=== PATIENT | female | born 1935 | race Caucasian/White ===

== ENCOUNTER 2017-10-21 13:01 | Inpatient (IN) | payer OTHER ==
[2017-10-21 14:26] LABS: Basophils # (Auto) 0.2 K/mm3 (0.0-0.1); Basophils % (Auto) 2.2 % (0.0-1.8); Eosinophils # (Auto) 0.1 K/mm3 (0.0-0.4); Eosinophils % (Auto) 1.6 % (0.0-4.3); Hemoglobin 10.2 gm/dl (10.1-14.3); Lymphocytes # (Auto) 1.6 K/mm3 (1.2-5.4); Lymphocytes % (Auto) 17.2 % (13.4-35.0); Mean Corpuscular HGB Conc 32 % (30-34); Monocytes # (Auto) 0.8 K/mm3 (0.0-0.8); Monocytes % (Auto) 8.1 % (0.0-7.3); Platelet Count 351 K/mm3 (140-440); Red Blood Count 4.77 M/mm3 (3.65-5.03); Red Cell Distribution Width 15.5 % (13.2-15.2)
[2017-10-21 14:27] LABS: Mean Corpuscular Hemoglobin 21 pg (28-32); Mean Corpuscular Volume 67 fl (79-97)
[2017-10-21 14:36] LABS: INR 0.96 (0.87-1.13)
[2017-10-21 14:37] LABS: Partial Thromboplastin Time 42.7 Sec. (24.2-36.6)
[2017-10-21 14:49] LABS: BUN/Creatinine Ratio 10; Blood Urea Nitrogen 7 mg/dL (7-17); Calcium 8.7 mg/dL (8.4-10.2); Hemolysis Index 3
--- NOTE | 2017-10-21 15:02 | XRay Report ---
FINAL REPORT EXAM: XR CHEST ROUTINE 2V HISTORY: Shortness of breath TECHNIQUE: Frontal and lateral views of the chest. PRIORS: None currently available. FINDINGS: Moderate cardiomegaly. Aortic calcifications. Mildly prominent central pulmonary markings. No pneumothorax. No distinct consolidation. Suspect small bilateral pleural effusions. Lungs appear hyperinflated and may be related to reactive airway disease or COPD. There are no suspicious osseous lesions. Degenerative changes in the spine and both shoulders. IMPRESSION: Cardiomegaly and prominent central pulmonary markings suggest mild CHF. Please correlate clinically. Suspect small bilateral pleural effusions. COPD.
[2017-10-21 15:55] LABS: Chol/HDL Ratio 4.29 %; HDL Cholesterol 27 mg/dL (40-59); LDL Cholesterol,Direct 61 mg/dL (50-130)
[2017-10-21] MEDS ORDERED: K-DUR PO ONE (16:08)
--- NOTE | 2017-10-21 16:23 | Emergency Department Report ---
ED Shortness of Breath HPI - General Chief Complaint: Dyspnea/Respdistress Stated Complaint: CHEST PAIN/SHORNTNESS Time Seen by Provider: 10/21/17 16:07 Source: patient, family Mode of arrival: Wheelchair Limitations: Language Barrier - History of Present Illness MD Complaint: shortness of breath (For a few days, gradually worsening, associated with productive cough, chest pain, and leg edema. She was recently admitted to [facility] for seizure and weakness and was diagnosed with portal vein blood clot and a "small heart attack". According to her daughter in law, she is taking Lasix that was prescribed by her nephew. The hospital did not diagnose the patient with CHF and no history of CHF. ) - Related Data Allergies Allergy/AdvReac Type Severity Reaction Status Date / Time No Known Allergies Allergy Unverified 10/21/17 13:13 ED Review of Systems ROS: Stated complaint: CHEST PAIN/SHORNTNESS Other details as noted in HPI Constitutional: malaise. denies: chills, fever Eyes: denies: eye pain, eye discharge, vision change ENT: denies: ear pain, throat pain Respiratory: denies: cough, shortness of breath, wheezing Cardiovascular: chest pain, dyspnea on exertion, edema. denies: palpitations Endocrine: no symptoms reported Gastrointestinal: denies: abdominal pain, nausea, diarrhea Genitourinary: other (incontinence). denies: urgency, dysuria, discharge Musculoskeletal: myalgia. denies: back pain, joint swelling, arthralgia Skin: denies: rash, lesions Neurological: weakness. 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 Absent: respiratory distress - Cardiovascular Cardiovascular Exam: Present: regular rate, normal rhythm. Absent: systolic murmur, diastolic murmur, rubs, gallop - GI/Abdominal GI/Abdominal exam: Present: soft, normal bowel sounds - Extremities Exam Extremities exam: Present: normal inspection, pedal edema - Back Exam Back exam: Present: normal inspection - Neurological Exam Neurological exam: Present: alert, oriented X3 - Psychiatric Psychiatric exam: Present: normal affect, normal mood - Skin Skin exam: Present: warm, dry, intact, normal color. Absent: rash ED Course Vital Signs 10/21/17 10/21/17 10/21/17 13:13 14:49 16:48 Temperature 98.2 F Pulse Rate 74 76 76 Respiratory 20 15 19 Rate Blood Pressure 166/74 Blood Pressure 171/69 183/84 [Right] O2 Sat by Pulse 98 97 94 Oximetry 10/21/17 10/21/17 18:33 19:23 Temperature Pulse Rate 79 76 Respiratory 18 13 Rate Blood Pressure Blood Pressure 171/68 [Right] O2 Sat by Pulse 98 97 Oximetry ED Medical Decision Making - Lab Data Result diagrams: 10/21/17 14:08 10/21/17 14:08 Critical care attestation.: If time is entered above; I have spent that time in minutes in the direct care of this critically ill patient, excluding procedure time. ED Disposition Clinical Impression: Hypokalemia CHF (congestive heart failure) Qualifiers: Heart failure type: unspecified Heart failure chronicity: acute Qualified Code( s): I50.9 - Heart failure, unspecified Disposition: OP ADMIT IP TO THIS HOSP Is pt being admited?: Yes Does the pt Need Aspirin: No Condition: Stable Time of Disposition: 20:41
[2017-10-21] MEDS ORDERED: MORPHINE IV ONE (18:59)
--- NOTE | 2017-10-21 21:49 | History and Physical Report ---
History of Present Illness Date of examination: 10/21/17 Date of admission: 10/21/17 20:41 Chief complaint: Chief complaint: Left-sided chest pain Swelling of both the legs History of present illness: History of Present Illness: 81-year-old female comes in for chest pain productive cough and swelling of both the legs. She was recently discharged from [facility] after being treated for seizures and was diagnosed with the portal vein thrombosis and a small non-STEMI. Patient is on Lasix and is apparently supposed to follow with the cardiology in a week. She does not have an idea how the echocardiogram was. Ejection fraction is not known valvular function is not known. Results of stress test not known. Patient has 3+ pedal edema and orthopnea. 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 denies: chills, fever Eyes: denies: eye pain, eye discharge, vision change ENT: denies: ear pain, throat pain Respiratory: denies: cough, shortness of breath, wheezing Cardiovascular: chest pain, dyspnea on exertion, edema. denies: palpitations Endocrine: no symptoms reported Gastrointestinal: denies: abdominal pain, nausea, diarrhea Genitourinary: other (incontinence). denies: urgency, dysuria, discharge Musculoskeletal: myalgia. denies: back pain, joint swelling, arthralgia Skin: denies: rash, lesions Neurological: weakness. denies: headache, paresthesias Psychiatric: denies: anxiety, depression Hematological/Lymphatic: denies: easy bleeding, easy bruising 14 point review of systems done Medications and Allergies Allergies Allergy/AdvReac Type Severity Reaction Status Date / Time No Known Allergies Allergy Unverified 10/21/17 13:13 Home Medications Medication Instructions Recorded Confirmed Last Taken Type AtorvaSTATin [Lipitor] 40 mg PO QHS 10/21/17 10/21/17 Unknown History Metoprolol [Lopressor] 25 mg PO BID 10/21/17 10/21/17 Unknown History Sucralfate [Carafate] 1 gm PO Q6HR 10/21/17 10/21/17 Unknown History Active Meds: Active Medications Enoxaparin Sodium (Lovenox) 40 mg SUB-Q QDAY ARMAAN Exam - Physical Exam Narrative exam: Lying in bed comfortably - Constitutional Vitals: Temp Pulse Resp BP Pulse Ox 98.2 F 70 25 H 124/59 97 10/21/17 13:13 10/21/17 21:00 10/21/17 21:00 10/21/17 21:00 10/21/17 21:00 General appearance: Present: mild distress, well-nourished - EENT Eyes: Present: PERRL ENT: hearing intact, clear oral mucosa - Neck Neck: Present: supple, normal ROM - Respiratory Respiratory effort: normal Respiratory: bilateral: CTA - Cardiovascular Heart rate: 90 Rhythm: regular Heart Sounds: Present: S1 & S2. Absent: rub, click - Extremities Extremities: no ischemia, pulses intact, pulses symmetrical, No edema Extremity abnormal: other (3+ leg edema) Peripheral Pulses: within normal limits - Abdominal General gastrointestinal: Present: soft, non-tender, non-distended, normal bowel sounds Female genitourinary: Present: normal - Rectal Rectal Exam: deferred - Integumentary Integumentary: Present: clear, warm, dry - Musculoskeletal Musculoskeletal: gait normal, strength equal bilaterally - Psychiatric Psychiatric: appropriate mood/affect, intact judgment & insight - Neurologic Neurologic: CNII-XII intact, moves all extremities - Allied Health Allied health notes reviewed: nursing, case management Results - Labs CBC & Chem 7: 10/21/17 14:08 10/21/17 14:08 Labs: Laboratory Last Values WBC 9.4 K/mm3 (4.5-11.0) 10/21/17 14:08 RBC 4.77 M/mm3 (3.65-5.03) 10/21/17 14:08 Hgb 10.2 gm/dl (10.1-14.3) 10/21/17 14:08 Hct 32.0 % (30.3-42.9) 10/21/17 14:08 MCV 67 fl (79-97) L 10/21/17 14:08 MCH 21 pg (28-32) L 10/21/17 14:08 MCHC 32 % (30-34) 10/21/17 14:08 RDW 15.5 % (13.2-15.2) H 10/21/17 14:08 Plt Count 351 K/mm3 (140-440) 10/21/17 14:08 Lymph % (Auto) 17.2 % (13.4-35.0) 10/21/17 14:08 [place] % (Auto) 8.1 % (0.0-7.3) H 10/21/17 14:08 Eos % (Auto) 1.6 % (0.0-4.3) 10/21/17 14:08 Baso % (Auto) 2.2 % (0.0-1.8) H 10/21/17 14:08 Lymph # 1.6 K/mm3 (1.2-5.4) 10/21/17 14:08 [place] # 0.8 K/mm3 (0.0-0.8) 10/21/17 14:08 Eos # 0.1 K/mm3 (0.0-0.4) 10/21/17 14:08 Baso # 0.2 K/mm3 (0.0-0.1) H 10/21/17 14:08 Seg Neutrophils % 70.9 % (40.0-70.0) H 10/21/17 14:08 Seg Neutrophils # 6.7 K/mm3 (1.8-7.7) 10/21/17 14:08 PT 13.3 Sec. (12.2-14.9) 10/21/17 14:08 INR 0.96 (0.87-1.13) 10/21/17 14:08 APTT 42.7 Sec. (24.2-36.6) H 10/21/17 14:08 Sodium 139 mmol/L (137-145) 10/21/17 14:08 Potassium 3.1 mmol/L (3.6-5.0) L 10/21/17 14:08 Chloride 97.8 mmol/L (98-107) L 10/21/17 14:08 Carbon Dioxide 29 mmol/L (22-30) 10/21/17 14:08 Anion Gap 15 mmol/L 10/21/17 14:08 BUN 7 mg/dL (7-17) 10/21/17 14:08 Creatinine 0.7 mg/dL (0.7-1.2) 10/21/17 14:08 Estimated GFR > 60 ml/min 10/21/17 14:08 BUN/Creatinine Ratio 10 % 10/21/17 14:08 Glucose 99 mg/dL (65-100) 10/21/17 14:08 Calcium 8.7 mg/dL (8.4-10.2) 10/21/17 14:08 Troponin T 0.317 ng/mL (0.00-0.029) H* 10/21/17 16:03 NT-Pro-B Natriuret Pep 40366 pg/mL (0-900) H 10/21/17 14:08 Triglycerides 164 mg/dL (2-149) H 10/21/17 14:08 Cholesterol 116 mg/dL (50-199) 10/21/17 14:08 LDL Cholesterol Direct 61 mg/dL (50-130) 10/21/17 14:08 HDL Cholesterol 27 mg/dL (40-59) L 10/21/17 14:08 Cholesterol/HDL Ratio 4.29 % 10/21/17 14:08 - Imaging and Cardiology Imaging and Cardiology: Chest x-ray FINDINGS: Moderate cardiomegaly. Aortic calcifications. Mildly prominent central pulmonary markings. No pneumothorax. No distinct consolidation. Suspect small bilateral pleural effusions. Lungs appear hyperinflated and may be related to reactive airway disease or COPD. There are no suspicious osseous lesions. Degenerative changes in the spine and both shoulders. IMPRESSION: Cardiomegaly and prominent central pulmonary markings suggest mild CHF. Please correlate clinically. Suspect small bilateral pleural effusions. COPD. Assessment and Plan Advance Directives: Yes (full code) VTE prophylaxis?: Chemical Plan of care discussed with patient/family: Yes - Patient Problems (1) Acute exacerbation of CHF (congestive heart failure) Current Visit: Yes Status: Acute Qualifiers: Heart failure type: combined systolic and diastolic Qualified Code(s): I50.43 - Acute on chronic combined systolic (congestive) and diastolic ( congestive) heart failure Plan to address problem: Patient initiated on IV Lasix Echocardiogram ordered Cardiology consult ordered BNP 86641 (2) Elevated troponin Current Visit: Yes Status: Acute Plan to address problem: On a declining trend. Probably from the recent NSTEMI We will get the records from [facility] (3) Hypertension Current Visit: Yes Status: Chronic Qualifiers: Hypertension type: essential hypertension Qualified Code(s): I10 - Essential (primary) hypertension Plan to address problem: Continue antihypertensives (4) Hypothyroidism (acquired) Current Visit: Yes Status: Acute Plan to address problem: Continue levothyroxine (5) Hyperlipidemia Current Visit: Yes Status: Chronic Qualifiers: Hyperlipidemia type: mixed hyperlipidemia Qualified Code(s): E78.2 - Mixed hyperlipidemia Plan to address problem: Continue statins (6) Hypokalemia Current Visit: Yes Status: Acute Plan to address problem: Supplemented (7) Portal vein thrombosis Current Visit: Yes Status: Acute Plan to address problem: not on any oral anticoagulant Check the records from [facility] (8) DVT prophylaxis Current Visit: Yes Status: Acute Plan to address problem: On heparin
[2017-10-21] MEDS ORDERED: DILAUDID IV PRN (22:05)
[2017-10-21] MEDS ORDERED: ZOFRAN IV PRN (22:05)
[2017-10-21] MEDS ORDERED: SODIUM CHLORIDE FLUSH SYRINGE 10 ML IV PRN (22:05)
[2017-10-21] MEDS ORDERED: MORPHINE IV PRN (22:05)
[2017-10-21] MEDS ORDERED: PERCOCET 5/325 PO PRN (22:05)
[2017-10-21] MEDS: CARAFATE PO SCH (23:35)
[2017-10-21] MEDS: K-DUR PO SCH (23:36)
[2017-10-21] MEDS: LOPRESSOR PO SCH (23:36)
[2017-10-21] MEDS: KCL 10MEQ/100ML 10 MEQ/100 ML BAG IV SCH (23:36)
[2017-10-22] MEDS: TYLENOL PO PRN (00:15)
[2017-10-22] MEDS: KCL 10MEQ/100ML 10 MEQ/100 ML BAG IV SCH ×3 (01:00→04:39)
[2017-10-22] MEDS: LASIX IV SCH ×2 (06:13→18:45)
[2017-10-22] MEDS: CARAFATE PO SCH ×3 (06:13→18:45)
[2017-10-22 06:44] LABS: Basophils # (Auto) 0.1 K/mm3 (0.0-0.1); Basophils % (Auto) 1.9 % (0.0-1.8); Eosinophils # (Auto) 0.2 K/mm3 (0.0-0.4); Eosinophils % (Auto) 2.8 % (0.0-4.3); Hematocrit 29.1 % (30.3-42.9); Hemoglobin 9.2 gm/dl (10.1-14.3); Lymphocytes # (Auto) 1.6 K/mm3 (1.2-5.4); Lymphocytes % (Auto) 20.5 % (13.4-35.0); Mean Corpuscular HGB Conc 31 % (30-34); Mean Corpuscular Hemoglobin 21 pg (28-32); Mean Corpuscular Volume 68 fl (79-97); Monocytes # (Auto) 0.7 K/mm3 (0.0-0.8); Monocytes % (Auto) 9.2 % (0.0-7.3); Platelet Count 301 K/mm3 (140-440); Red Cell Distribution Width 16.2 % (13.2-15.2)
[2017-10-22 07:16] LABS: Alanine Aminotransferase 21 units/L (7-56); Albumin 2.8 g/dL (3.9-5); BUN/Creatinine Ratio 9; Blood Urea Nitrogen 6 mg/dL (7-17); Calcium 8.3 mg/dL (8.4-10.2); Hemolysis Index 1
[2017-10-22] MEDS ORDERED: LOVENOX SUB-Q SCH ×2 (10:00)
[2017-10-22] MEDS ORDERED: PEPCID IV SCH (10:00)
--- NOTE | 2017-10-22 11:41 | Consultation ---
History of Present Illness Consult date: 10/22/17 Consult reason: congestive heart failure History of present illness: This is an 81yr old whom is non-Polish speaking. Patient was just discharged from [facility] 3 days ago with superior mesenteric vein thrombosis. She is on eliquis for oral anticoagulation. Cardiac evaluation with an echocardiogram reports a dilated left atria, mitral calcifications with moderate mitral stenosis bt a normal left ventricular systolic function, ejection fraction 65%. Patient was brought to this hospital with edema of her lower extremities. There are no family members available. Patient is resting in bed comfortably. There were no reports of chest pain or shortness of breath. A chest xray reports cardiomegaly with small bilateral pleural effusions. 12 lead ECG is benign, no acute ischemic changes. Medications and Allergies Allergies Allergy/AdvReac Type Severity Reaction Status Date / Time No Known Allergies Allergy Unverified 10/21/17 13:13 Home Medications Medication Instructions Recorded Confirmed Last Taken Type AtorvaSTATin [Lipitor] 40 mg PO QHS 10/21/17 10/21/17 Unknown History Metoprolol [Lopressor] 25 mg PO BID 10/21/17 10/21/17 Unknown History Sucralfate [Carafate] 1 gm PO Q6HR 10/21/17 10/21/17 Unknown History Active Meds: Active Medications Acetaminophen (Tylenol) 650 mg PO Q4H PRN PRN Reason: Pain MILD(1-3)/Fever >100.5/CESPEDES Last Admin: 10/22/17 00:15 Dose: 650 mg Atorvastatin Calcium (Lipitor) 40 mg PO QHS [facility] Enoxaparin Sodium (Lovenox) 40 mg SUB-Q QDAY [facility] Famotidine (Pepcid) 20 mg IV BID [facility] Furosemide (Lasix) 40 mg IV 0600,1800 [facility] Last Admin: 10/22/17 06:13 Dose: 40 mg Hydromorphone HCl (Dilaudid) 0.5 mg IV Q3H PRN PRN Reason: Pain , Severe (7-10) Influenza Virus Vaccine Quadrival (Fluarix Quad [id number](36 Mos+) 0.5 ml IM .ONCE ONE Stop: 10/22/17 12:01 Metoprolol Tartrate (Lopressor) 25 mg PO BID [facility] Last Admin: 10/21/17 23:36 Dose: 25 mg Morphine Sulfate (Morphine) 2 mg IV Q4H PRN PRN Reason: Pain, Moderate (4-6) Last Admin: 10/22/17 04:38 Dose: 2 mg Ondansetron HCl (Zofran) 4 mg IV Q8H PRN PRN Reason: Nausea And Vomiting Oxycodone/Acetaminophen (Percocet 5/325) 1 tab PO Q6H PRN PRN Reason: Pain, Moderate (4-6) Pneumococcal Polyvalent Vaccine (Pneumovax 23) 0.5 ml IM .ONCE ONE Stop: 10/22/17 12:01 Potassium Chloride (K-Dur) 20 meq PO Q12H ARMAAN Last Admin: 10/21/17 23:36 Dose: 20 meq Sodium Chloride (Sodium Chloride Flush Syringe 10 Ml) 10 ml IV BID ARMAAN Sodium Chloride (Sodium Chloride Flush Syringe 10 Ml) 10 ml IV PRN PRN PRN Reason: LINE FLUSH Sucralfate (Carafate) 1 gm PO Q6HR [facility] Last Admin: 10/22/17 06:13 Dose: 1 gm Physical Examination Vital Signs Temp Pulse Resp BP Pulse Ox 98.2 F 74 20 166/74 98 10/21/17 13:13 10/21/17 13:13 10/21/17 13:13 10/21/17 13:13 10/21/17 13:13 General appearance: no acute distress HEENT: Positive: PERRL Cardiac: Positive: Reg Rate and Rhythm Results 10/22/17 06:14 10/22/17 06:14 Cardiac Enzymes 10/22/17 Range/Units 06:14 AST 17 (5-40) units/L Coagulation 10/21/17 Range/Units 14:08 PT 13.3 (12.2-14.9) Sec. INR 0.96 (0.87-1.13) APTT 42.7 H (24.2-36.6) Sec. Lipids 10/21/17 Range/Units 14:08 Triglycerides 164 H (2-149) mg/dL Cholesterol 116 (50-199) mg/dL HDL Cholesterol 27 L (40-59) mg/dL Cholesterol/HDL Ratio 4.29 % CBC 10/21/17 10/22/17 Range/Units 14:08 06:14 WBC 9.4 7.5 (4.5-11.0) K/mm3 RBC 4.77 4.30 (3.65-5.03) M/mm3 Hgb 10.2 9.2 L (10.1-14.3) gm/dl Hct 32.0 29.1 L (30.3-42.9) % Plt Count 351 301 (140-440) K/mm3 Lymph # 1.6 1.6 (1.2-5.4) K/mm3 [place] # 0.8 0.7 (0.0-0.8) K/mm3 Eos # 0.1 0.2 (0.0-0.4) K/mm3 Baso # 0.2 H 0.1 (0.0-0.1) K/mm3 Comprehensive Metabolic Panel 10/21/17 10/22/17 Range/Units 14:08 06:14 Sodium 139 141 (137-145) mmol/L Potassium 3.1 L 4.3 D (3.6-5.0) mmol/L Chloride 97.8 L 102.2 (98-107) mmol/L Carbon Dioxide 29 29 (22-30) mmol/L BUN 7 6 L (7-17) mg/dL Creatinine 0.7 0.7 (0.7-1.2) mg/dL Glucose 99 96 (65-100) mg/dL Calcium 8.7 8.3 L (8.4-10.2) mg/dL AST 17 (5-40) units/L ALT 21 (7-56) units/L Alkaline Phosphatase 102 (35-129) units/L Total Protein 6.0 L (6.3-8.2) g/dL Albumin 2.8 L (3.9-5) g/dL
[2017-10-22] MEDS ORDERED: Fluarix Quad 2017-2018(36 MOS+ IM ONE (12:00)
[2017-10-22] MEDS ORDERED: PNEUMOVAX 23 IM ONE (12:00)
--- NOTE | 2017-10-22 12:47 | Progress Note ---
Assessment and Plan Assessment and plan: Patient is a 81 yo Episcopalian speaking woman with a history of recent superior mesenteric thrombosis s/p discharge on Eliquis (?compliance) last from [facility], chf, gerd, nstemi and hypertension who presented with cp and sob. 2v CXR reported cardiomegaly and prominent central pulmonary marking suggest mild chf, suspect small bilateral pleural effusion and copd -Acute hypoxic respiratory failure, poa: continue o2 therapy, add nebs -Acute on chronic diastolic heart failure: Cardiology following, treat with diuretics, ECHO pending -Superior Mesenteric Venous Thrombosis: consult Vascular, resume a/c -Moderate malnutrition: consult Sliver Former -Chest pains: stress test ordered -hypokalemia: continue to monitor, recheck -Anemia of chronic disease most likely: repeat levels, check FOBT -DVT/gi ppx reviewed History Interval history: Son Roc used as the [employer] Valet Parking Attendant, Patient was seen and examined. Follow-up on current diagnosis of chest pains which is mild in the substernal area. The SOB is better on the O2. Overnight uneventful. Patient denies any nausea/vomiting or severe headaches. Imaging, nursing note, chart, labs and old chart reviewed. Discussed with patient. Hospitalist Physical - Physical exam Narrative exam: GEN: WDWN, NAD, Awake, Alert, Orientated HEENT: NCAT, EOMI, PERRL, OP Clear NECK: supple, no adenopathy, no thyromegaly, + JVD CVS/HEART: RRR, normal S1S2, pulses present bilaterally CHEST/LUNGS: bilateral crackles Symmetrical chest expansion, good air entry bilaterally GI/Abdomen: soft, NTND, good bowel sounds, no guarding or rebound /Bladder: no suprapubic tenderness, no CVA or paraspinal tenderness EXT/Skin: 2+ bilateral pitting leg edema MSK: FROM x 4 Neuro: CN 2-12 grossly intact, no new focal deficits Psych: calm - Constitutional Vitals: Temp Pulse Resp BP Pulse Ox 98.2 F 79 20 176/79 100 10/22/17 11:35 10/22/17 11:35 10/22/17 11:35 10/22/17 11:35 10/22/17 11:35 General appearance: Present: no acute distress Results - Labs CBC & Chem 7: 10/22/17 06:14 10/22/17 06:14 Labs: Laboratory Last Values WBC 7.5 K/mm3 (4.5-11.0) 10/22/17 06:14 RBC 4.30 M/mm3 (3.65-5.03) 10/22/17 06:14 Hgb 9.2 gm/dl (10.1-14.3) L 10/22/17 06:14 Hct 29.1 % (30.3-42.9) L 10/22/17 06:14 MCV 68 fl (79-97) L 10/22/17 06:14 MCH 21 pg (28-32) L 10/22/17 06:14 MCHC 31 % (30-34) 10/22/17 06:14 RDW 16.2 % (13.2-15.2) H 10/22/17 06:14 Plt Count 301 K/mm3 (140-440) 10/22/17 06:14 Lymph % (Auto) 20.5 % (13.4-35.0) 10/22/17 06:14 [place] % (Auto) 9.2 % (0.0-7.3) H 10/22/17 06:14 Eos % (Auto) 2.8 % (0.0-4.3) 10/22/17 06:14 Baso % (Auto) 1.9 % (0.0-1.8) H 10/22/17 06:14 Lymph # 1.6 K/mm3 (1.2-5.4) 10/22/17 06:14 [place] # 0.7 K/mm3 (0.0-0.8) 10/22/17 06:14 Eos # 0.2 K/mm3 (0.0-0.4) 10/22/17 06:14 Baso # 0.1 K/mm3 (0.0-0.1) 10/22/17 06:14 Seg Neutrophils % 65.6 % (40.0-70.0) 10/22/17 06:14 Seg Neutrophils # 5.0 K/mm3 (1.8-7.7) 10/22/17 06:14 PT 13.3 Sec. (12.2-14.9) 10/21/17 14:08 INR 0.96 (0.87-1.13) 10/21/17 14:08 APTT 42.7 Sec. (24.2-36.6) H 10/21/17 14:08 Sodium 141 mmol/L (137-145) 10/22/17 06:14 Potassium 4.3 mmol/L (3.6-5.0) D 10/22/17 06:14 Chloride 102.2 mmol/L (98-107) 10/22/17 06:14 Carbon Dioxide 29 mmol/L (22-30) 10/22/17 06:14 Anion Gap 14 mmol/L 10/22/17 06:14 BUN 6 mg/dL (7-17) L 10/22/17 06:14 Creatinine 0.7 mg/dL (0.7-1.2) 10/22/17 06:14 Estimated GFR > 60 ml/min 10/22/17 06:14 BUN/Creatinine Ratio 9 % 10/22/17 06:14 Glucose 96 mg/dL (65-100) 10/22/17 06:14 Hemoglobin A1c 6.2 % (4-6) H 10/21/17 22:40 Calcium 8.3 mg/dL (8.4-10.2) L 10/22/17 06:14 Total Bilirubin 0.60 mg/dL (0.1-1.2) 10/22/17 06:14 AST 17 units/L (5-40) 10/22/17 06:14 ALT 21 units/L (7-56) 10/22/17 06:14 Alkaline Phosphatase 102 units/L (35-129) 10/22/17 06:14 Troponin T 0.317 ng/mL (0.00-0.029) H* 10/21/17 16:03 NT-Pro-B Natriuret Pep 55452 pg/mL (0-900) H 10/21/17 14:08 Total Protein 6.0 g/dL (6.3-8.2) L 10/22/17 06:14 Albumin 2.8 g/dL (3.9-5) L 10/22/17 06:14 Albumin/Globulin Ratio 0.9 % 10/22/17 06:14 Triglycerides 164 mg/dL (2-149) H 10/21/17 14:08 Cholesterol 116 mg/dL (50-199) 10/21/17 14:08 LDL Cholesterol Direct 61 mg/dL (50-130) 10/21/17 14:08 HDL Cholesterol 27 mg/dL (40-59) L 10/21/17 14:08 Cholesterol/HDL Ratio 4.29 % 10/21/17 14:08
[2017-10-22] MEDS ORDERED: PROVENTIL IH PRN (12:53)
[2017-10-22] MEDS: PEPCID PO SCH ×2 (13:20→21:15)
[2017-10-22] MEDS: K-DUR PO SCH ×2 (13:21→23:15)
[2017-10-22] MEDS: LOPRESSOR PO SCH ×2 (13:22→21:16)
[2017-10-22] MEDS: SODIUM CHLORIDE FLUSH SYRINGE 10 ML IV SCH ×2 (13:24→21:14)
[2017-10-22] MEDS: ELIQUIS PO SCH (21:17)
[2017-10-23] MEDS: CARAFATE PO SCH ×4 (00:42→19:13)
[2017-10-23] MEDS: LASIX IV SCH ×2 (05:42→19:14)
[2017-10-23 06:38] LABS: Hematocrit 31.8 % (30.3-42.9); Hemoglobin 9.7 gm/dl (10.1-14.3); Mean Corpuscular HGB Conc 30 % (30-34); Platelet Count 318 K/mm3 (140-440); Red Blood Count 4.65 M/mm3 (3.65-5.03); Red Cell Distribution Width 16.7 % (13.2-15.2)
[2017-10-23 06:39] LABS: Mean Corpuscular Hemoglobin 21 pg (28-32); Mean Corpuscular Volume 68 fl (79-97)
[2017-10-23 06:58] LABS: BUN/Creatinine Ratio 13; Blood Urea Nitrogen 9 mg/dL (7-17); Calcium 8.4 mg/dL (8.4-10.2); Hemolysis Index 1
[2017-10-23] MEDS ORDERED: MAGNESIUM SULFATE 2GM/50ML 2 GM/50 ML BAG IV NR (07:57)
[2017-10-23] MEDS ORDERED: K-DUR PO NR (07:57)
[2017-10-23] MEDS: PEPCID PO SCH ×2 (11:09→21:17)
[2017-10-23] MEDS: K-DUR PO SCH ×2 (11:10→23:00)
[2017-10-23] MEDS: PROTONIX PO SCH (11:10)
[2017-10-23] MEDS: ELIQUIS PO SCH ×2 (11:10→21:18)
[2017-10-23] MEDS: SODIUM CHLORIDE FLUSH SYRINGE 10 ML IV SCH ×2 (11:11→21:18)
[2017-10-23] MEDS: LOPRESSOR PO SCH ×2 (11:11→23:00)
--- NOTE | 2017-10-23 12:52 | Progress Note ---
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, chf, gerd, nstemi and hypertension who presented with cp and sob. 2v CXR reported cardiomegaly and prominent central pulmonary marking suggest mild chf, suspect small bilateral pleural effusion and copd -Acute hypoxic respiratory failure, poa: continue o2 therapy, add nebs -Acute on chronic diastolic heart failure: Cardiology following, treat with diuretics, ECHO per Cardiology -Superior Mesenteric Venous Thrombosis: consult Vascular, resume a/c -Moderate malnutrition: consult Cloth Bleaching Range Tender -Chest pains: stress test ordered -hypokalemia: continue to monitor, recheck -Anemia of chronic disease most likely: repeat levels, check FOBT -DVT/gi ppx reviewed replace magnesium, potassium, fobt not done because no stool. h/h steady. anticipate discharge tomorrow. History Interval history: Son Roc used as the [employer], Patient was seen and examined. Follow-up on current diagnosis of chest pains which is mild in the substernal area. The SOB is better on the O2. Overnight uneventful. Patient denies any nausea/vomiting or severe headaches. Imaging, nursing note, chart, labs and old chart reviewed. Discussed with patient. Hospitalist Physical - Physical exam Narrative exam: GEN: WDWN, NAD, Awake, Alert, Orientated HEENT: NCAT, EOMI, PERRL, OP Clear NECK: supple, no adenopathy, no thyromegaly, + JVD CVS/HEART: RRR, normal S1S2, pulses present bilaterally CHEST/LUNGS: bilateral crackles Symmetrical chest expansion, good air entry bilaterally GI/Abdomen: soft, NTND, good bowel sounds, no guarding or rebound /Bladder: no suprapubic tenderness, no CVA or paraspinal tenderness EXT/Skin: 2+ bilateral pitting leg edema MSK: FROM x 4 Neuro: CN 2-12 grossly intact, no new focal deficits Psych: calm - Constitutional Vitals: Temp Pulse Resp BP Pulse Ox 97.9 F 74 20 103/42 97 10/23/17 10:22 10/23/17 10:22 10/23/17 10:10/23/17 10:22 10/23/17 10:22 General appearance: Present: no acute distress Results - Labs CBC & Chem 7: 10/23/17 06:06 10/23/17 06:06 Labs: Laboratory Last Values WBC 9.5 K/mm3 (4.5-11.0) 10/23/17 06:06 RBC 4.65 M/mm3 (3.65-5.03) 10/23/17 06:06 Hgb 9.7 gm/dl (10.1-14.3) L 10/23/17 06:06 Hct 31.8 % (30.3-42.9) 10/23/17 06:06 MCV 68 fl (79-97) L 10/23/17 06:06 MCH 21 pg (28-32) L 10/23/17 06:06 MCHC 30 % (30-34) 10/23/17 06:06 RDW 16.7 % (13.2-15.2) H 10/23/17 06:06 Plt Count 318 K/mm3 (140-440) 10/23/17 06:06 Lymph % (Auto) 20.5 % (13.4-35.0) 10/22/17 06:14 [place] % (Auto) 9.2 % (0.0-7.3) H 10/22/17 06:14 Eos % (Auto) 2.8 % (0.0-4.3) 10/22/17 06:14 Baso % (Auto) 1.9 % (0.0-1.8) H 10/22/17 06:14 Lymph # 1.6 K/mm3 (1.2-5.4) 10/22/17 06:14 [place] # 0.7 K/mm3 (0.0-0.8) 10/22/17 06:14 Eos # 0.2 K/mm3 (0.0-0.4) 10/22/17 06:14 Baso # 0.1 K/mm3 (0.0-0.1) 10/22/17 06:14 Seg Neutrophils % 65.6 % (40.0-70.0) 10/22/17 06:14 Seg Neutrophils # 5.0 K/mm3 (1.8-7.7) 10/22/17 06:14 PT 13.3 Sec. (12.2-14.9) 10/21/17 14:08 INR 0.96 (0.87-1.13) 10/21/17 14:08 APTT 42.7 Sec. (24.2-36.6) H 10/21/17 14:08 Sodium 135 mmol/L (137-145) L 10/23/17 06:06 Potassium 3.5 mmol/L (3.6-5.0) L 10/23/17 06:06 Chloride 98.6 mmol/L (98-107) 10/23/17 06:06 Carbon Dioxide 33 mmol/L (22-30) H 10/23/17 06:06 Anion Gap 7 mmol/L 10/23/17 06:06 BUN 9 mg/dL (7-17) 10/23/17 06:06 Creatinine 0.7 mg/dL (0.7-1.2) 10/23/17 06:06 Estimated GFR > 60 ml/min 10/23/17 06:06 BUN/Creatinine Ratio 13 % 10/23/17 06:06 Glucose 92 mg/dL (65-100) 10/23/17 06:06 Hemoglobin A1c 6.2 % (4-6) H 10/21/17 22:40 Calcium 8.4 mg/dL (8.4-10.2) 10/23/17 06:06 Magnesium 1.50 mg/dL (1.7-2.3) L 10/23/17 06:06 Total Bilirubin 0.60 mg/dL (0.1-1.2) 10/22/17 06:14 AST 17 units/L (5-40) 10/22/17 06:14 ALT 21 units/L (7-56) 10/22/17 06:14 Alkaline Phosphatase 102 units/L (35-129) 10/22/17 06:14 Troponin T 0.317 ng/mL (0.00-0.029) H* 10/21/17 16:03 NT-Pro-B Natriuret Pep 95830 pg/mL (0-900) H 10/21/17 14:08 Total Protein 6.0 g/dL (6.3-8.2) L 10/22/17 06:14 Albumin 2.8 g/dL (3.9-5) L 10/22/17 06:14 Albumin/Globulin Ratio 0.9 % 10/22/17 06:14 Triglycerides 164 mg/dL (2-149) H 10/21/17 14:08 Cholesterol 116 mg/dL (50-199) 10/21/17 14:08 LDL Cholesterol Direct 61 mg/dL (50-130) 10/21/17 14:08 HDL Cholesterol 27 mg/dL (40-59) L 10/21/17 14:08 Cholesterol/HDL Ratio 4.29 % 10/21/17 14:08
--- NOTE | 2017-10-23 12:55 | Progress Note ---
Assessment and Plan Lower extremity edema chest x-ray reveals no heart failure and no interstitial edema. 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 A recent echocardiogram at [facility] revealed normal left ventricular chamber size and systolic function with ejection fraction 65%. Her major cardiac morphology appears to be moderate mitral stenosis with a mean transmitral gradient of 7mmHg and a resultant severe dilatation on both left and right atria. Recommendations: Conservative cardiac management for moderate mitral stenosis. This should be followed with serial echocardiograms every 6-12 months. Vascular surgery for the evaluation of the central veins particularly the IVC and the lower extremity veins, because of persistent lower extremity edema could be due to continuing venous thrombosis. Subjective Date of service: 10/23/17 Interval history: Patient is resting in bed comfortably. No reported cardiac events on telemetry monitoring. Objective Vital Signs Temp Pulse Pulse Pulse Resp BP BP 10/23/17 10:22 97.9 F 74 20 103/42 10/23/17 07:09 97.6 F 70 20 134/52 10/23/17 05:46 74 20 127/50 10/23/17 05:45 99.1 F 10/23/17 05:00 74 10/23/17 00:00 97.9 F 74 20 124/62 10/22/17 21:19 73 73 10/22/17 21:16 73 138/68 10/22/17 21:00 72 10/22/17 20:30 98.2 F 70 20 138/68 10/22/17 15:44 97.9 F 69 20 144/74 Pulse Ox 10/23/17 10:22 97 10/23/17 07:09 95 10/23/17 05:46 96 10/23/17 05:45 10/23/17 05:00 10/23/17 00:00 96 10/22/17 21:19 10/22/17 21:16 10/22/17 21:00 10/22/17 20:30 93 10/22/17 15:44 97 - Physical Examination General: No Apparent Distress HEENT: Positive: PERRL Cardiac: Positive: Reg Rate and Rhythm Lungs: Positive: Decreased Breath Sounds - Labs and Meds CBC 10/23/17 Range/Units 06:06 WBC 9.5 (4.5-11.0) K/mm3 RBC 4.65 (3.65-5.03) M/mm3 Hgb 9.7 L (10.1-14.3) gm/dl Hct 31.8 (30.3-42.9) % Plt Count 318 (140-440) K/mm3 Comprehensive Metabolic Panel 10/23/17 Range/Units 06:06 Sodium 135 L (137-145) mmol/L Potassium 3.5 L (3.6-5.0) mmol/L Chloride 98.6 (98-107) mmol/L Carbon Dioxide 33 H (22-30) mmol/L BUN 9 (7-17) mg/dL Creatinine 0.7 (0.7-1.2) mg/dL Glucose 92 (65-100) mg/dL Calcium 8.4 (8.4-10.2) mg/dL - Imaging and Cardiology EKG: report reviewed
[2017-10-24] MEDS: CARAFATE PO SCH ×3 (00:44→11:41)
[2017-10-24] MEDS: LASIX IV SCH (05:29)
--- NOTE | 2017-10-24 08:57 | Progress Note ---
Assessment and Plan Lower extremity edema - improved chest x-ray reveals no heart failure and no interstitial edema. 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 A recent echocardiogram at [facility] revealed normal left ventricular chamber size and systolic function with ejection fraction 65%. Her major cardiac morphology appears to be moderate mitral stenosis with a mean transmitral gradient of 7mmHg and a resultant severe dilatation on both left and right atria. Recommendations: Conservative cardiac management for moderate mitral stenosis. This should be followed with serial echocardiograms every 6-12 months. No further cardiac work-up We will sign off Subjective Date of service: 10/24/17 Principal diagnosis: Edema Interval history: Patient denies chest pain or shortness of breath Objective Vital Signs Temp Pulse Pulse Resp BP Pulse Ox 10/24/17 05:00 69 10/24/17 00:05 98.3 F 66 18 146/65 92 10/23/17 22:00 70 10/23/17 19:25 99.1 F 71 116/53 96 10/23/17 14:38 97.9 F 73 20 117/46 93 10/23/17 10:22 97.9 F 74 20 103/42 97 - Physical Examination General: No Apparent Distress HEENT: Positive: PERRL Neck: Positive: neck supple Cardiac: Positive: Reg Rate and Rhythm Lungs: Positive: Normal Exam - Imaging and Cardiology EKG: report reviewed
[2017-10-24] MEDS: ELIQUIS PO SCH (09:42)
[2017-10-24] MEDS: PEPCID PO SCH (09:42)
[2017-10-24] MEDS: PROTONIX PO SCH (09:42)
[2017-10-24] MEDS: LOPRESSOR PO SCH (09:43)
[2017-10-24] MEDS: SODIUM CHLORIDE FLUSH SYRINGE 10 ML IV SCH (10:00)
[2017-10-24] MEDS ORDERED: HALFPRIN EC PO SCH (11:00)
[2017-10-24] MEDS: K-DUR PO SCH (11:42)
[2017-10-24 12:12] VITALS: BP 123/44
--- NOTE | 2017-10-24 12:53 | Discharge Summary ---
Providers - Providers Date of Admission: 10/21/17 20:41 Date of discharge: 10/24/17 Attending physician: VISHNU BUNN 10/21/17 22:05 Consult to Physician [CONS] Routine Comment: Consulting Provider: ELVIA HICKEY Physician Instructions: Reason For Exam: CHF exacerbation elevated troponin 10/22/17 12:54 Consult to Dietitian/Nutrition [CONS] Routine Physician Instructions: Reason For Exam: Reason for Consult: Malnutrition 10/22/17 12:55 Consult to Physician [CONS] Routine Comment: Consulting Provider: LONG CAICEDO Physician Instructions: Reason For Exam: superior mesenteric thrombosis Primary care physician: BULK FOLDER Hospitalization Condition: Stable Hospital course: Patient is a 81 yo [employer] speaking woman with a 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 2v CXR reported cardiomegaly and prominent central pulmonary marking suggest mild chf, suspect small bilateral pleural effusion and copd -Acute hypoxic respiratory failure, poa: weaned off o2 therapy, asked the rn to recheck, add nebs -Acute on chronic diastolic heart failure: Cardiology following, treat with diuretics, ECHO per Cardiology -Superior Mesenteric Venous Thrombosis: consult Vascular, resume a/c -Moderate malnutrition: consult Child Advocate -Chest pains: stress test ordered -hypokalemia: continue to monitor, recheck -Anemia of chronic disease most likely -DVT/gi ppx reviewed Cardiology signed off, will discharge, no chest pains Roc Dean was the medical device sales Disposition: [id number] TO HOME OR SELFCARE Time spent for discharge: 35 minutes Core Measure Documentation - Palliative Care Palliative Care/ Comfort Measures: Not Applicable - Core Measures Any of the following diagnoses?: heart failure - VTE Discharge Requirements Deep Vein Thrombosis/Pulmonary Embolism Present on Admission: No Has pt received <5 days of overlap therapy or INR<2.0: No Anticoagulant overlap therapy prescribed at discharge: No Contraindication No Overlap Therapy order at DC: Not Indicated - Heart Failure Discharge Requirements MERLE/ARB for LVSD if EF <40%: Not Applicable Beta sanam at discharge: Yes Exam - Physical Exam Narrative exam: GEN: WDWN, NAD, Awake, Alert, Orientated HEENT: NCAT, EOMI, PERRL, OP Clear NECK: supple, no adenopathy, no thyromegaly, + JVD CVS/HEART: RRR, normal S1S2, pulses present bilaterally CHEST/LUNGS: improved bilateral crackles, Symmetrical chest expansion, good air entry bilaterally GI/Abdomen: soft, NTND, good bowel sounds, no guarding or rebound /Bladder: no suprapubic tenderness, no CVA or paraspinal tenderness EXT/Skin: 2+ bilateral pitting leg edema improved MSK: FROM x 4 Neuro: CN 2-12 grossly intact, no new focal deficits Psych: calm - Constitutional Vitals: Temp Pulse Resp BP Pulse Ox 98.7 F 66 18 123/44 96 10/24/17 12:11 10/24/17 12:11 10/24/17 12:11 10/24/17 12:11 10/24/17 12:11 Plan Activity: other (no strenous activity) Diet: low salt Special Instructions: record daily BP diary, no heavy lifting Additional Instructions: Check you kidney function within 1 week with pcp or Office Worker Follow up with: PRIMARY MD LIZZIE [Primary Care Provider] - 3-5 Days ELVIA HICKEY MD [Staff Physician] - 7 Days DAY,LONG Tolliver MD [Staff Physician] - 7 Days Prescriptions: AtorvaSTATin [Lipitor] 40 mg PO QHS #30 tablet Apixaban [Eliquis] 5 mg PO Q12HR #60 tablet Furosemide [Lasix TAB] 40 mg PO BID #60 tablet Metoprolol [Lopressor TAB] 25 mg PO BID #60 tablet oxyCODONE /ACETAMINOPHEN [Percocet 5/325 mg] 1 tab PO Q6H PRN #3 day PRN Reason: Pain , Severe (7-10) Potassium Chloride [K-Dur] 20 meq PO BID #60 tablet Sucralfate [Carafate] 1 gm PO Q6HR #7 day
[2017-10-24] MEDS: TYLENOL PO PRN (13:40)
== END 2017-10-24 16:00 | disposition home or self-care (01) | DRG 291 ==
LOC: ED 13:01 → 4A 20:41
PROVIDERS: ADMIT Internal Medicine; ATTEND Internal Medicine
DX: I11.0 Hypertensive heart disease with heart failure (principal); I81 Portal vein thrombosis; J96.01 Acute respiratory failure with hypoxia; E44.0 Moderate protein-calorie malnutrition; I50.43 Acute on chronic combined systolic (congestive) and diastolic (congestive) heart failure; D63.8 Anemia in other chronic diseases classified elsewhere; E87.6 Hypokalemia; I25.2 Old myocardial infarction; K21.9 Gastro-esophageal reflux disease without esophagitis; E03.9 Hypothyroidism, unspecified; E78.5 Hyperlipidemia, unspecified; Z68.33 Body mass index [BMI] 33.0-33.9, adult
CPT/HCPCS: 36415; 71046; 80048; 80053; 80061; 83036; 83735; 83880; 84484; 85025; 85027; 85610; 85730; 90686; 90732; 93005; 93010; 96374; A9270-GY; J1940; J2270; J3480